=== PATIENT | male | born 1940 ===

== ENCOUNTER 2019-08-24 13:09 | Observation (INO) | payer MEDICARE, OTHER ==
[~2019-08-24] VITALS: Ht 180.3 cm; Wt 93.5 kg
[~2019-08-24 13:09] MED LIST: ASPI325T4 GT; CEPH500C PO; HYDR-3454 PO; LISI10TA2 PO; VRP80T PO
[2019-08-24] MEDS ORDERED: MUPIROCIN 2% OINT 22 GM (BACTROBAN) TUBE ONE (13:24)
[2019-08-24] MEDS ORDERED: COCAINE HCL 4% 2 ML SYR ONE (13:24)
[2019-08-24] MEDS ORDERED: PHENYLEPHRINE 0.5% NASAL SPR (NEO-SYNEPHRINE) REG ONE (13:24)
[2019-08-24] MEDS ORDERED: LIDOCAINE/EPI 1%-1:100,000 (XYLOCAINE) 20ML ONE (13:24)
[2019-08-24 13:32] LABS: BASOPHILS % (AUTO) 0 % (0-10); EOSINOPHILS # (AUTO) 0.3 10^3/uL (0.0-0.3); EOSINOPHILS % (AUTO) 4 % (0-10); HEMATOCRIT 47 % (40-54); HEMOGLOBIN 15.8 G/DL (13.3-17.7); LYMPHOCYTES # (AUTO) 1.4 X 10^3 (1.0-4.0); LYMPHOCYTES % (AUTO) 19 % (12-44); MEAN CORPUSCULAR HEMOGLOBIN 29 PG (25-34); MEAN CORPUSCULAR HGB CONC 33 G/DL (32-36); MEAN CORPUSCULAR VOLUME 85 FL (80-99); MEAN PLATELET VOLUME 11.2 FL (7.4-10.4); MONOCYTES # (AUTO) 0.8 X 10^3 (0.0-1.0); MONOCYTES % (AUTO) 11 % (0-12); NEUTROPHILS # (AUTO) 4.9 X 10^3 (1.8-7.8); NEUTROPHILS % (AUTO) 67 % (42-75); PLATELET COUNT 221 10^3/uL (130-400); RED CELL DISTRIBUTION WIDTH 15.5 % (10.0-14.5); WHITE BLOOD COUNT 7.3 10^3/uL (4.3-11.0)
--- NOTE | 2019-08-24 13:50 | Diagnostic Imaging Report ---
CHEST 1 VIEW, AP/PA ONLY Indication: Atrial fibrillation with rapid ventricular rate Comparison: None available. Findings: No focal airspace disease in the visualized lungs. Please note that the posterior lower lobes are poorly evaluated by portable radiography. No pleural effusion or pneumothorax. Normal cardiomediastinal silhouette. Impression: 1. No acute cardiopulmonary process by portable radiography. Dictated by: Dictated on workstation # [id number]
[2019-08-24 14:20] LABS: PROTHROMBIN TIME PATIENT 13.5 SEC (12.2-14.7)
[2019-08-24 14:27] LABS: ALANINE AMINOTRANSFERASE 17 U/L (0-55); ALBUMIN 3.8 GM/DL (3.2-4.5); ALKALINE PHOSPHATASE 64 U/L (40-136); BILIRUBIN,TOTAL 0.5 MG/DL (0.1-1.0); BUN/CREATININE RATIO 31; CALCIUM 9.1 MG/DL (8.5-10.1); CARBON DIOXIDE 22 MMOL/L (21-32); CHLORIDE 108 MMOL/L (98-107); CREATININE SERUM 0.78 MG/DL (0.60-1.30); GFR ESTIMATED > 60; GLUCOSE 103 MG/DL (70-105); MAGNESIUM 1.9 MG/DL (1.6-2.4); POTASSIUM 4.6 MMOL/L (3.6-5.0); SODIUM 138 MMOL/L (135-145); TOTAL PROTEIN 7.4 GM/DL (6.4-8.2)
--- NOTE | 2019-08-24 14:36 | ED General ---
General Chief Complaint: Nasal Problems Stated Complaint: NOSE BLEED;A-FIB W RVR Nursing Triage Note: Pt to room #2 via [facility] ems (ER-ER transfer [facility]) with c/o nose bleed et new onset afib. [facility] staff accessed 18g iv to R wrist. Upon arrival pt reports nose bleed began @ approx 0700 ont this day. Packing to R nare noted to be saturated with dark, red blood. Pt currently denies CP, SOA, pain or discomfort. Pt reports minimal amount of posterior nasal drainage. A&OX4. @ side. Nursing Sepsis Screen: No Definite Risk Source of Information: Patient, EMS, Other ([facility] ER notes and report) Exam Limitations: No Limitations History of Present Illness Date Seen by Provider: Aug 24, 2019 Time Seen by Provider: 13:10 Initial Comments This 79-year-old gentleman presents to the emergency room as a transfer from [facility] in [place] where he was having a nosebleed refractory to treatment. He has had multiple nosebleeds in the past treated surgically by Dr. Pappas. He received packing by the ER provider in [place] today but sneezed and blood through his packing. Packing was replaced. The ER provider discussed the case with Dr. Pappas who requested transfer to [place] for ENT evaluation. The ER provider noted a brief run of atrial fibrillation or atrial tachycardia with a heart rate near 150. This was short-lived and did not require treatment. EMS notes a few brief runs of tachycardia as well. Patient has no known history of tachycardic arrhythmias. Patient has not taken his medications this morning including verapamil and lisinopril. He was significantly hypertensive in [place] but this has improved. Systolic blood pressures 155 on arrival. EMS reports no problems with a nosebleed in route. Patient takes aspirin but is not anticoagulated. He reports no history of cardiac problems. Patient is a fairly heavy smoker. Primary care provider is Dr. Maurice Espinal in [place]. Patient describes chest pains in the past with brisk movements but denies any chest pains today. Allergies and Home Medications Allergies Coded Allergies: No Known Drug Allergies (Unverified , 04/04/14) Home Medications Cephalexin Monohydrate 500 Mg Capsule, 1 EACH PO TID Prescribed by: PATRICE BLAKE on 04/04/14 1316 Hydrocodone Bit/Acetaminophen 1 Each Tablet, 1-2 TAB PO Q4H PRN for PAIN Prescribed by: PATRICE BLAKE on 04/04/14 1316 Lisinopril 10 Mg Tablet, 20 MG PO DAILY, (Reported) Verapamil Hcl 80 Mg Tab, 1 EACH PO DAILY, (Reported) Patient Home Medication List Home Medication List Reviewed: Yes Review of Systems Review of Systems Constitutional: no symptoms reported EENTM: see HPI Respiratory: no symptoms reported Cardiovascular: see HPI Gastrointestinal: no symptoms reported Genitourinary: no symptoms reported Musculoskeletal: no symptoms reported Skin: no symptoms reported Psychiatric/Neurological: No Symptoms Reported Hematologic/Lymphatic: No Symptoms Reported Immunological/Allergic: no symptoms reported Past Flswfwf-Hmiydt-Cuukdi Hx Past Med/Social Hx: Reviewed and Corrections made Patient Social History Alcohol Use: Denies Use Recreational Drug Use: No Smoking Status: Current Everyday Smoker Type Used: Cigarettes 2nd Hand Smoke Exposure: Yes Recent Foreign Travel: No Contact w/Someone Who Travel: No Recent Infectious Disease Expo: No Past Medical History Surgeries: Yes (L shoulder, nasal cautery) Respiratory: No Cardiac: Yes (atrial tachycardia) Hypertension Neurological: No Gastrointestinal: No Musculoskeletal: No Endocrine: No Cancer: No Psychosocial: No Integumentary: No Blood Disorders: No Physical Exam Vital Signs Vital Signs - First Documented 08/24/19 13:10 Temp 37.2 Pulse 70 Resp 19 B/P (MAP) 155/85 (108) O2 Delivery Room Air Capillary Refill : Less Than 3 Seconds Height, Weight, BMI Height: 5'10" Weight: 210lbs. oz. 95.514838by; 28.00 BMI Method:Stated General Appearance: No Apparent Distress, WD/WN HEENT: PERRL/EOMI, Other (nasal packing in the right nostril with dry blood. 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 Norm as Tested Skin: Normal Color, Warm/Dry Progress/Results/Core Measures Suspected Sepsis Recent Fever Within 48 Hours: No Infection Criteria Present: None New/Unexplained Altered Menta: No Sepsis Screen: No Definite Risk SIRS Temperature: Pulse: 70 Respiratory Rate: 19 Laboratory Tests 08/24/19 13:20: White Blood Count 7.3 Blood Pressure 155 /85 Mean: 108 Laboratory Tests 08/24/19 13:20: Platelet Count 221 08/24/19 14:00: Creatinine 0.78, INR Comment 1.0, Total Bilirubin 0.5 Results/Orders Lab Results Laboratory Tests Test 08/24/19 13:20 08/24/19 14:00 Range/Units White Blood Count 7.3 4.3-11.0 10^3/uL Red Blood Count 5.55 4.35-5.85 10^6/uL Hemoglobin 15.8 13.3-17.7 G/DL Hematocrit 47 40-54 % Mean Corpuscular Volume 85 80-99 FL Mean Corpuscular Hemoglobin 29 25-34 PG Mean Corpuscular Hemoglobin Concent 33 32-36 G/DL Red Cell Distribution Width 15.5 H 10.0-14.5 % Platelet Count 221 130-400 10^3/uL Mean Platelet Volume 11.2 H 7.4-10.4 FL Neutrophils (%) (Auto) 67 42-75 % Lymphocytes (%) (Auto) 19 12-44 % Monocytes (%) (Auto) 11 0-12 % Eosinophils (%) (Auto) 4 0-10 % Basophils (%) (Auto) 0 0-10 % Neutrophils # (Auto) 4.9 1.8-7.8 X 10^3 Lymphocytes # (Auto) 1.4 1.0-4.0 X 10^3 Monocytes # (Auto) 0.8 0.0-1.0 X 10^3 Eosinophils # (Auto) 0.3 0.0-0.3 10^3/uL Basophils # (Auto) 0.0 0.0-0.1 10^3/uL Prothrombin Time 13.5 12.2-14.7 SEC INR Comment 1.0 0.8-1.4 Activated Partial Thromboplast Time 37 H 24-35 SEC Sodium Level 138 135-145 MMOL/L Potassium Level 4.6 3.6-5.0 MMOL/L Chloride Level 108 H 98-107 MMOL/L Carbon Dioxide Level 22 21-32 MMOL/L Anion Gap 8 5-14 MMOL/L Blood Urea Nitrogen 24 H 7-18 MG/DL Creatinine 0.78 0.60-1.30 MG/DL Estimat Glomerular Filtration Rate > 60 BUN/Creatinine Ratio 31 Glucose Level 103 70-105 MG/DL Calcium Level 9.1 8.5-10.1 MG/DL Corrected Calcium 9.3 8.5-10.1 MG/DL Magnesium Level 1.9 1.6-2.4 MG/DL Total Bilirubin 0.5 0.1-1.0 MG/DL Aspartate Amino Transf (AST/SGOT) 16 5-34 U/L Alanine Aminotransferase (ALT/SGPT) 17 0-55 U/L Alkaline Phosphatase 64 40-136 U/L Myoglobin 59.9 10.0-92.0 NG/ML Troponin I < 0.028 <0.028 NG/ML Total Protein 7.4 6.4-8.2 GM/DL Albumin 3.8 3.2-4.5 GM/DL TSH Bath Testing 0.43 0.35-4.94 UIU/ML My Orders Orders - ABI GUERRA MD Cbc With Automated Diff (08/24/19:) Magnesium (08/24/19 13:24) Chest 1 View, Ap/Pa Only (08/24/19 13:24) Ekg Tracing (08/24/19:24) Comprehensive Metabolic Panel (08/24/19:24) Myoglobin Serum (08/24/19:24) Protime With Inr (08/24/19:24) Partial Thromboplastin Time (08/24/19 13:24) O2 (08/24/19:24) Monitor-Rhythm Ecg Trace Only (08/24/19:24) Lipid Panel (08/25/19 06:00) Ed Iv/Invasive Line Start (08/24/19 13:24) Troponin I (08/24/19 13:24) Thyroid Analyzer (08/24/19:24) Cocaine 4% Topical Solution (Cocaine 4% (08/24/19:24) Phenylephrine 0.5% Nasal Almond (Prasanna-Syne (08/24/19 13:24) Mupirocin Ointment (Bactroban Ointment (08/24/19 13:24) Lidocaine/Epi 1% 1:100,000 (Xylocaine /E (08/24/19 13:24) Echo W Doppler/Color Flow (08/24/19 14:54) Vital Signs/I&O 08/24/19 13:10 Temp 37.2 Pulse 70 Resp 19 B/P (MAP) 155/85 (108) O2 Delivery Room Air Capillary Refill : Less Than 3 Seconds Blood Pressure Mean: 108 Progress Note : Time: 15:01 Progress Note I discussed the case with Dr. Pappas who intends to take the patient to surgery this afternoon for cauterization. He requested that the patient be admitted to the hospitalist service because of the atrial tachycardia and hypertension. Dr. Pinon accepted the admission. Dr. Rubio was consulted and came to the emergency room to evaluate the patient. He reviewed the EKG from [place] and determined it is likely atrial tachycardia, not atrial fibrillation. Patient likely does not need anticoagulation. However, there were some ST changes that warrants further investigation. He requested a stat echocardiogram prior to surgery. He also recommended a beta acosta and preop before surgery. An update was provided to Dr. Pappas at 15:05 and he intends to discuss further with Dr. Rubio before surgery. ECG Initial ECG Impression Date: Aug 24, 2019 Initial ECG Impression Time: 13:18 Initial ECG Rate: 68 Initial ECG Rhythm: Normal Sinus Initial ECG Impression: Normal Comment Sinus rhythm with no ST elevation or depression. Right axis deviation by automated read. PAC noted. Diagnostic Imaging Diagonstic Imaging: Xray Plain Films/CT/US/NM/MRI: chest Comments NAME: PAULO TORO [facility] REC#: [id number] PT STATUS: REG ER : 1940 PHYSICIAN: ABI GUERRA MD ADMIT DATE: 08/24/19/ER Signed Date of Exam:08/24/19 CHEST 1 VIEW, AP/PA ONLY Indication: Atrial fibrillation with rapid ventricular rate Comparison: None available. Findings: No focal airspace disease in the visualized lungs. Please note that the posterior lower lobes are poorly evaluated by portable radiography. No pleural effusion or pneumothorax. Normal cardiomediastinal silhouette. Impression: 1. No acute cardiopulmonary process by portable radiography. Dictated by: Dictated on workstation # [id number] Dict: 08/24/19 1348 Trans: 08/24/19 1348 [facility] [id number] Interpreted by: ELEAZAR ENGLAND MD Electronically signed by: ELEAZAR ENGLAND MD 08/24/19 1348 Departure Communication (Admissions) Time/Spoke to Admitting Phy: 13:55 Dr. Zi Pappas at 13:45 Dr. Rubio at 14:28 Impression Primary Impression: Epistaxis Additional Impressions: Accelerated hypertension Atrial tachycardia Disposition: ADMITTED INPATIENT Condition: Improved Admissions Decision to Admit Reason: Admit from ER (General) Decision to Admit/Date: Aug 24, 2019 Time/Decision to Admit Time: 13:10 Departure-Patient Inst. Referrals: GEREMIAS ESPINAL DO (PCP) Primary Care Physician ABI GUERRA MD Aug 24, 2019 14:36
[2019-08-24 14:47] LABS: TSH (THYROID ANALYZER) 0.43 UIU/ML (0.35-4.94)
--- NOTE | 2019-08-24 15:00 | NUR ---
Viraj ([employer] at [facility] obtaining echocardiogram.
--- NOTE | 2019-08-24 15:15 | NUR ---
Nancy, SHOE PACKER student in room visiting with pt et regarding H&P.
--- NOTE | 2019-08-24 15:21 | History & Physical-Hospitalist ---
MALIHA BELTRANAH,MED STUDENT 08/24/19 1521: History of Present Illness HPI/Chief Complaint Patient is a 79 y/o male with history of hypertension who presented to the [place] ED with right sided epistaxis. While in the ED, he was found to have what they thought to be new onset atrial fibrillation with RVR which later converted back to sinus rhythm. He was sent to the [place] ED for further evaluation prior to undergoing surgery with ENT for the nosebleed. Patient denied any associated chest pain, shortness of breath, or palpitations. He also denied any recent life stressors. He has no history of [place], stroke, or VTE. He states that he believes he has COPD due to his 50 pack year smoking history, but he has never been formally tested. He did state that he has noticed intermittent palpitations, usually brought on with exertion. He remained in sinus rhythm while in the [place] ED. Date Seen 08/24/19 Attending Physician Jaxon Pinon MD PCP Efrain Espinal DO Referring Physician Date of Admission Aug 24, 2019 at 14:32 Home Medications & Allergies Home Medications Reviewed patient Home Medication Reconciliation performed by pharmacy medication reconciliations armorer technician and/or nursing. Patients Allergies have been reviewed. Allergies Allergies Coded Allergies No Known Drug Allergies (Unverified04/04/14) Past Yaddesb-Tpanep-Xekblx Hx Past Med/Social Hx: Reviewed Nursing Past Med/Soc Hx Patient Social History Marrital Status: Alcohol Use: Denies Use Recreational Drug Use: No Smoking Status: Current Everyday Smoker (50 pack year history) Cigaretts per day: 20 Type Used: Cigarettes 2nd Hand Smoke Exposure: Yes Recent Foreign Travel: No Contact w/other who traveled: No Recent Infectious Disease Expo: No Past Medical History Surgeries: Orthopedic (right rotator cuff) Cardiac: Hypertension History of Blood Disorders: No Family History No Pertinent Family Hx Review of Systems Constitutional: No chills, No fever EENTM: epistaxis; No nose pain Respiratory: No cough; short of breath Cardiovascular: No chest pain; palpitations Gastrointestinal: No abdominal pain, No diarrhea Genitourinary: No dysuria, No frequency Musculoskeletal: No joint pain, No joint swelling Skin: No lesions, No rash Psychiatric/Neurological: Denies Headache, Denies Paresthesia Physical Exam Physical Exam Vital Signs Vital Signs - First Documented 08/24/19 13:10 Temp 37.2 Pulse 70 Resp 19 B/P (MAP) 155/85 (108) O2 Delivery Room Air Capillary Refill : Less Than 3 Seconds Height, Weight, BMI Height: 5'10" Weight: 210lbs. oz. 95.028171gu; 28.00 BMI Method:Stated General Appearance: No Apparent Distress, WD/WN HEENT: Moist Mucous Membranes, Other (gauze roll in right nare, no active bleeding noted) Neck: Non Tender, Supple Respiratory: Chest Non Tender, Lungs Clear, Normal Breath Sounds, No Accessory Muscle Use, No Respiratory Distress Cardiovascular: Regular Rate, Rhythm, No Murmur Gastrointestinal: Non Tender, Soft Extremity: Non Tender, No Pedal Edema Neurologic/Psychiatric: Alert, Normal Mood/Affect Skin: Normal Color, Warm/Dry Results Results/Procedures Labs Laboratory Tests 08/24/19 13:20 08/24/19 14:00 Patient resulted labs reviewed. Assessment/Plan Admission Diagnosis atrial tachycardia, unsure if atrial fibrillation Admission Status: Observation Assessment and Plan Atrial tachycardia, unsure if atrial fibrillation - Cardiology reviewed ECG from [place] and did not agree that it showed atrial fibrillation, possibly just supraventricular tachycardia - Echo done in ED - 24 hour cardiac monitoring - He is already on verapamil - Add beta acosta Epistaxis of right nare - Dr. Pappas will take to OR today - Hold aspirin JAXON PINON MD 08/24/19 1840: History of Present Illness Time Seen by a Provider: 15:30 Assessment/Plan Assessment and Plan Pt was transferred here due to epistaxis and new onset atrial fibrillation per [place] ER. I personally reviewed EKG with Dr Olmstead and Dr Rubio from both here and at [place] and it does not appear to be atrial fibrillation. Regardless his rate is well controlled in the 60s at the time of my exam and he is in sinus rhythm. Anticoagulation is also contraindicated at this time due to his epistaxis. Plan is [facility] under the care of Dr Pappas. Dr Rubio is consulted as well. Echo ordered. He will be on telemetry post op. BP was elevated as well but is now improved. As he is NPO will just trend and resume home meds when able. Diagnosis/Problems Diagnosis/Problems (1) Atrial tachycardia Status: Acute (2) Accelerated hypertension Status: Acute (3) Epistaxis Status: Acute Supervisory-Addendum Brief Verification & Attestation Participated in pt care: history, MDM, physical Personally performed: exam, history, MDM, supervision of care Care discussed with: Medical Student Procedures: n/a Results interpretation: Verified all documentation Verification and Attestation of Medical Student E/M Service A medical student performed and documented this service in my presence. I reviewed and verified all information documented by the medical student and made modifications to such information, when appropriate. I personally performed the physical exam and medical decision making. Jaxon Pinon, Aug 27, 2019,20:01 GENARO BELTRAN,MED STUDENT Aug 24, 2019 15:21 JAXON PINON MD Aug 24, 2019 18:40
[2019-08-24] MEDS ORDERED: RT-ALBUTEROL/IPRATROPIUM 3 ML (DUONEB) VIAL INH ONE (15:45)
[2019-08-24 16:05] VITALS: BP 184/77
--- NOTE | 2019-08-24 16:05 | NUR ---
PAULO TORO admitted to room 405-1, with an admitting diagnosis of EPISTAXIS, on 08/24/19 from ED via WHEELCHAIR, accompanied by ED STAFF AND .PAULO TORO introduced to surroundings, call light, bed controls, phone, TV, temperature control, lights, meal times, smoking policy, visitor policy, side rail policy, bathrooms and showers. Patient Rights given to patient in the handbook. PAULO TORO verbalizes understanding that [facility] is not responsible for the loss or damage to any personal effects or valuables that are kept in the patients posession during their hospitalization. PAULO TORO verbalizes understanding of Interdisciplinary Patient Education. Patient and/or family were informed about the Rapid Response Team and its purpose.
[2019-08-24 16:45] VITALS: BP 184/77
--- NOTE | 2019-08-24 16:50 | Consultation-Cardiology ---
HPI-Cardiology Cardiology Consultation Date of Consultation 08/24/19 Date of Admission Time Seen by Provider: 16:00 Indication: supraventricular tachycardia HPI 79-year-old gentleman with history of recurrent nosebleed, had cauterized a Xun done, he was seen in [facility] emergency room for nosebleed, arrangement were made for transfer to [place], prior to transfer he had a transient episode of supraventricular tachycardia converted back to sinus rhythm spontaneously. He admitted having occasional episodes of chest pain with exertion described it as tightness in the retrosternal area, last episode occurred about a month ago, infrequent episodes, some dyspnea on exertion. Denied any palpitation, no syncope or near syncopal episode. On arrival to the hospital his EKG showed nonspecific T wave abnormality in the inferior leads. Home Medications & Allergies Allergies: Coded Allergies: No Known Drug Allergies (Unverified , 04/04/14) Home Medication List Reviewed: Yes EEP-Yoyblc-Sjdsyr Hx Patient Social History Marital Status: Alcohol Use: Denies Use Recreational Drug Use: No Smoking Status: Current Everyday Smoker (50 pack year history) Cigaretts per day: 20 Type Used: Cigarettes 2nd Hand Smoke Exposure: Yes Recent Foreign Travel: No Recent Infectious Disease Expo: No Past Medical History Discussed below Family Medical History Significant Family History: No Pertinent Family Hx Family Medical Hx Noncontributory to his current condition Review of Systems-General Review of Systems Constitutional: No no symptoms reported; see HPI; No chills, No diaphoresis, No dizziness, No fever, No malaise, No weakness, No weight gain, No weight loss, No other EENTM: see HPI, epistaxis; No nose pain Respiratory: see HPI; No cough; dyspnea on exertion; No hemoptysis, No orthopnea, No phlegm; short of breath; No stridor, No wheezing, No other Cardiovascular: see HPI, chest pain; No edema, No Hx of Intervention, No syncope, No vascular heart diseas, No other Gastrointestinal: no symptoms reported, see HPI; No abdominal pain, No diarrhea Genitourinary: no symptoms reported, see HPI; No dysuria, No frequency Musculoskeletal: no symptoms reported, see HPI; No joint pain, No joint swelling Skin: no symptoms reported, see HPI; No lesions, No rash Psychiatric/Neurological: No Symptoms Reported, See HPI; Denies Headache, Denies Paresthesia Reviewed Test Results Reviewed Test Results Lab Laboratory Tests Test 08/24/19 13:20 08/24/19 14:00 Range/Units White Blood Count 7.3 4.3-11.0 10^3/uL Red Blood Count 5.55 4.35-5.85 10^6/uL Hemoglobin 15.8 13.3-17.7 G/DL Hematocrit 47 40-54 % Mean Corpuscular Volume 85 80-99 FL Mean Corpuscular Hemoglobin 29 25-34 PG Mean Corpuscular Hemoglobin Concent 33 32-36 G/DL Red Cell Distribution Width 15.5 H 10.0-14.5 % Platelet Count 221 130-400 10^3/uL Mean Platelet Volume 11.2 H 7.4-10.4 FL Neutrophils (%) (Auto) 67 42-75 % Lymphocytes (%) (Auto) 19 12-44 % Monocytes (%) (Auto) 11 0-12 % Eosinophils (%) (Auto) 4 0-10 % Basophils (%) (Auto) 0 0-10 % Neutrophils # (Auto) 4.9 1.8-7.8 X 10^3 Lymphocytes # (Auto) 1.4 1.0-4.0 X 10^3 Monocytes # (Auto) 0.8 0.0-1.0 X 10^3 Eosinophils # (Auto) 0.3 0.0-0.3 10^3/uL Basophils # (Auto) 0.0 0.0-0.1 10^3/uL Prothrombin Time 13.5 12.2-14.7 SEC INR Comment 1.0 0.8-1.4 Activated Partial Thromboplast Time 37 H 24-35 SEC Sodium Level 138 135-145 MMOL/L Potassium Level 4.6 3.6-5.0 MMOL/L Chloride Level 108 H 98-107 MMOL/L Carbon Dioxide Level 22 21-32 MMOL/L Anion Gap 8 5-14 MMOL/L Blood Urea Nitrogen 24 H 7-18 MG/DL Creatinine 0.78 0.60-1.30 MG/DL Estimat Glomerular Filtration Rate > 60 BUN/Creatinine Ratio 31 Glucose Level 103 70-105 MG/DL Calcium Level 9.1 8.5-10.1 MG/DL Corrected Calcium 9.3 8.5-10.1 MG/DL Magnesium Level 1.9 1.6-2.4 MG/DL Total Bilirubin 0.5 0.1-1.0 MG/DL Aspartate Amino Transf (AST/SGOT) 16 5-34 U/L Alanine Aminotransferase (ALT/SGPT) 17 0-55 U/L Alkaline Phosphatase 64 40-136 U/L Myoglobin 59.9 10.0-92.0 NG/ML Troponin I < 0.028 <0.028 NG/ML Total Protein 7.4 6.4-8.2 GM/DL Albumin 3.8 3.2-4.5 GM/DL TSH Irion Testing 0.43 0.35-4.94 UIU/ML Physical Exam Physical Exam Vital Signs Vital Signs - First Documented 08/24/19 08/24/19 13:10 15:57 Temp 37.2 Pulse 70 Resp 19 B/P (MAP) 155/85 (108) Pulse Ox 94 O2 Delivery Room Air Capillary Refill : Less Than 3 Seconds Height, Weight, BMI Height: 5'10" Weight: 210lbs. oz. 95.612975ci; 28.00 BMI Method:Stated General Appearance: No Apparent Distress, WD/WN HEENT: Moist Mucous Membranes, Other (gauze roll in right nare, no active bleeding noted) Neck: Non Tender, Supple Respiratory: Chest Non Tender, Lungs Clear, Normal Breath Sounds, No Accessory Muscle Use, No Respiratory Distress Cardiovascular: Regular Rate, Rhythm, No Edema, Systolic Murmur Gastrointestinal: Non Tender, Soft Extremity: Non Tender, Pedal Edema (trace edema) Neurologic/Psychiatric: Alert, Normal Mood/Affect Skin: Normal Color, Warm/Dry A/P-Cardiology Admission Diagnosis Paroxysmal atrial tachycardia Aortic valve stenosis Chest pain Abnormal EKG Assessment/Plan Paroxysmal atrial tachycardia, self-limiting, asymptomatic. Continue to monitor next Abnormal EKG, history of occasional episode of chest pain, nonspecific etiology, echocardiogram showed mild left ventricular hypertrophy with normal systolic function, mild to moderate aortic valve stenosis. We'll start low-dose beta blockers and evaluate tolerance and response. Recurrent nosebleed, for possible surgery tomorrow. Hypertension, monitor blood pressure Questionable hyperlipidemia, evaluate lipid profile Preoperative cardiac evaluation, patient is considered at intermediate risk for perioperative cardiac vascular complications, decision regarding the surgery, risks versus benefit is deferred to the surgeon Clinical Quality Measures DVT/VTE Risk/Contraindication: Risk Factor Score Per Nursin RFS Level Per Nursing on Admit: 3=High TOSHIA ZAPATA MD Aug 24, 2019 16:50
[2019-08-24] MEDS ORDERED: RT-ALBUTEROL SULF 2.5 MG/3 ML PRE-MIX VIAL INH PRN (17:00)
[2019-08-24] MEDS: NITROGLYCERIN 2% OINT 1 GM UNIT DOSE PACKET TOP PRN (17:23)
[2019-08-24] MEDS: NS IV 1000 ML 1,000 ML IV SCH (17:24)
--- NOTE | 2019-08-24 17:45 | Progress Note ---
Standard Progress Note Progress Notes/Assess & Plan Date Seen by a Provider: Aug 24, 2019 Time Seen by a Provider: 17:30 Progress/Assessment & Plan ENT-Mian- patient seen evaluated right post epistaxis heart being worked up npo p mn can eat up until midnight consent for endoscopic repair of right post epistaxis looks like surgery will be around mid morning on wednesday unless has uncontrolled bleeding otherwise tonight full note dictated MATTHIAS CABALLERO MD Aug 24, 2019 17:45
[2019-08-24] MEDS ORDERED: OXYMETAZOLINE (AFRIN) 0.05% NA 30 ML BTL PRN (18:00)
[2019-08-24] MEDS: RT-ALBUTEROL SULF 2.5 MG/3 ML PRE-MIX VIAL INH SCH (18:04)
[2019-08-24] MEDS ORDERED: ACETAMINOPHEN 325 MG TABLET PO PRN (18:45)
[2019-08-24] MEDS ORDERED: ANTACID SUSP 30 ML UDC (MYLANTA) PO PRN (18:45)
[2019-08-24] MEDS ORDERED: MILK OF MAGNESIA 400 MG/5 ML 30 ML UDC PO PRN (18:45)
[2019-08-24] MEDS ORDERED: ONDANSETRON 4 MG/2 ML (SDV) Z0FRAN IV PRN (18:45)
--- NOTE | 2019-08-24 18:59 | HISTORY AND PHYSICAL ---
DATE OF SERVICE: ENT CONSULT ROOM: 405. REFERRING PHYSICIAN: Dr. Flores. REASON FOR CONSULTATION: Right posterior epistaxis. HISTORY OF PRESENT ILLNESS: The patient was admitted to the hospital earlier this afternoon with the right posterior epistaxis. He was originally seen at [facility] where he was packed. He subsequently developed atrial tachycardia or possibly AFib. He had a rebleed and subsequently was transferred here for care. He has a history of two nosebleeds in the past, also which were cauterized, one in the operating room 6 years ago and one in the office approximately a year and a half ago. He has no other bleeding tendencies. The bleeding started yesterday and has persisted. He reports that bled more so from the front of the nose rather than posteriorly initially, but subsequently began to bleed posteriorly as well. PAST MEDICAL HISTORY: Dr. Rubio has seen and evaluated the patient. He is obtaining an echo to evaluate the heart as well as further troponins to rule out ischemia or other cardiac event. PHYSICAL EXAMINATION: A directed physical exam was done. NOSE: The right side of the nose was packed. There was some old blood present, but no new blood seen either anteriorly or posteriorly in the nasopharynx. Oral cavity was clear with no bleeding seen. NECK: Negative. IMPRESSION: Recurrent right posterior epistaxis. RECOMMENDATIONS: The patient will need evaluated in the operating room. He may eat until midnight, but then needed to be n.p.o. Surgery has been scheduled for Wednesday morning mid morning. Hopefully, by that time, the troponins will be back and we can proceed. If he has any acute bleeding in the night, he can use Afrin nasal spray 2 squirts in each or in the side of the nose that is bleeding. If it is uncontrolled bleeding, then we may be forced to do something tonight. I will follow up with him tomorrow morning. Consent for endoscopic repair of right posterior epistaxis will be obtained. His hemoglobin today was 15.8. Job ID: [id number] DocumentID: [id number] Dictated Date: 08/24/2019 18:15:13 Search Analyst Date: 08/24/2019 18:58:43 Dictated By: MATTHIAS CABALLERO MD
[2019-08-24 20:00] VITALS: BP 148/67
[2019-08-24] MEDS: DICYCLOMINE 10 MG (BENTYL) CAP PO SCH (21:37)
[2019-08-24] MEDS: MELATONIN 3 MG TABLET PO PRN (23:48)
[2019-08-25] VITALS (16 sets, daily range): BP systolic 95–184; BP diastolic 53–77
[2019-08-25] MEDS: NS IV 1000 ML 1,000 ML IV SCH (03:26)
[2019-08-25] MEDS: DICYCLOMINE 10 MG (BENTYL) CAP PO SCH ×4 (05:33→20:40)
--- NOTE | 2019-08-25 06:20 | NUR ---
DR. CABALLERO ON FLOOR, THIS RN DISCUSSED WITH HIM WETHER TO DO MRSA NASAL SWAB OR NOT. THIS RN WAS INFORMED THAT THIS WOULD BE PREFORMED IN THE OPERATING ROOM & FOR THIS RN TO NOT PREFORM THE SWAB.
[2019-08-25 06:36] LABS: HEMOGLOBIN 14.3 G/DL (13.3-17.7); MEAN PLATELET VOLUME 9.2 FL (7.4-10.4); RED CELL DISTRIBUTION WIDTH 14.9 % (10.0-14.5); WHITE BLOOD COUNT 7.6 10^3/uL (4.3-11.0)
--- NOTE | 2019-08-25 06:59 | Progress Note ---
Standard Progress Note Progress Notes/Assess & Plan Date Seen by a Provider: Aug 25, 2019 Time Seen by a Provider: 06:30 Progress/Assessment & Plan ENT-Pappas- patient seen evaluated right post epistaxis heart being worked up npo p mn can eat up until midnight consent for endoscopic repair of right post epistaxis looks like surgery will be around mid morning on wednesday unless has uncontrolled bleeding otherwise tonight full note dictated ENT-61 NPO for surgery mid morning awaiting morning troponins as long as heart is ok for surgery will proceed MATTHIAS PAPPAS MD Aug 25, 2019 06:59
[2019-08-25 07:02] LABS: ALANINE AMINOTRANSFERASE 13 U/L (0-55); ALBUMIN 3.4 GM/DL (3.2-4.5); ALKALINE PHOSPHATASE 53 U/L (40-136); BILIRUBIN,TOTAL 0.4 MG/DL (0.1-1.0); BUN/CREATININE RATIO 24; CALCIUM 8.6 MG/DL (8.5-10.1); CARBON DIOXIDE 22 MMOL/L (21-32); CHLORIDE 110 MMOL/L (98-107); CHOLESTEROL 117 MG/DL (< 200); CREATININE SERUM 0.87 MG/DL (0.60-1.30); GFR ESTIMATED > 60; GLUCOSE 94 MG/DL (70-105); HDL CHOLESTEROL 33 MG/DL (40-60); POTASSIUM 4.1 MMOL/L (3.6-5.0); SODIUM 140 MMOL/L (135-145); TOTAL PROTEIN 6.3 GM/DL (6.4-8.2); TRIGLYCERIDES 92 MG/DL (<150); VLDL CHOLESTEROL 18 MG/DL (5-40)
[2019-08-25] MEDS ORDERED: COCAINE HCL 4% 2 ML SYR ONE (08:08)
[2019-08-25] MEDS ORDERED: MUPIROCIN 2% OINT 22 GM (BACTROBAN) TUBE ONE (08:09)
[2019-08-25] MEDS ORDERED: PHENYLEPHRINE 0.5% NASAL SPR (NEO-SYNEPHRINE) REG ONE (08:09)
[2019-08-25] MEDS ORDERED: LIDOCAINE/EPI 1%-1:100,000 (XYLOCAINE) 20ML ONE (08:09)
[2019-08-25] MEDS ORDERED: fentaNYL INJECTION 100 MCG/2 ML AMP ONE (08:56)
[2019-08-25] MEDS ORDERED: ROCURONIUM 10 MG/ML 5 ML SYRINGE IV ONE (08:56)
[2019-08-25] MEDS ORDERED: LIDOCAINE PF 2% 5 ML (XYLOCAINE) VIAL ONE (08:56)
[2019-08-25] MEDS ORDERED: SEVOFLURANE (ULTANE) 15 ML INHAL SOLN ONE ×3 (08:56→09:01)
[2019-08-25] MEDS ORDERED: DEXAMETHASONE 10 MG/ML (DECADRON) 1 ML VIAL ONE (08:56)
[2019-08-25] MEDS ORDERED: proPOfol 200 MG/20 ML (DIPRIVAN) VIAL IV ONE (08:56)
[2019-08-25] MEDS ORDERED: ONDANSETRON 4 MG/2 ML (SDV) Z0FRAN ONE (08:56)
[2019-08-25] MEDS ORDERED: LACTATED RINGERS 1,000 ML IV PRN (08:58)
--- NOTE | 2019-08-25 09:19 | Progress Note-Pre Operative ---
Pre-Operative Progress Note H&P Reviewed The H&P was reviewed, patient examined and no changes noted. Date Seen by Provider: Aug 25, 2019 Time Seen by Provider: 09:10 Date H&P Reviewed: Aug 25, 2019 Time H&P Reviewed: 09:10 Pre-Operative Diagnosis: Right Posterior Epistaxis MATTHIAS CABALLERO MD Aug 25, 2019 09:18
[2019-08-25] MEDS: ceFAZolin INJECTION 1,000 MG in WATER (STERILE) FOR INJECTION 10 ML IV SCH ×2 (09:20→20:38)
[2019-08-25] MEDS ORDERED: SUCCINYLCHOLINE INJ 100 MG/5 ML SYR ONE (09:34)
[2019-08-25] MEDS ORDERED: ceFAZolin INJECTION 1,000 MG VIAL IV ONE (10:00)
--- NOTE | 2019-08-25 10:01 | Progress Note-Post Operative ---
Post-Operative Progess Note Surgeon (s)/Track Walker (s) Surgeon MATTHIAS CABALLERO MD Track Walker n/a Pre-Operative Diagnosis Right Posterior Epistaxis Post-Operative Diagnosis same Post-Op Procedure Note Date of Procedure: Aug 25, 2019 Name of Procedure Performed: Endoscopic REpair of Right PosteriorEpistaxis Description & Findings Description and Findings: n/a Anesthesia Type get Estimated Blood Loss minimal Packing none. Specimen(s) collected/removed none MATTHIAS CABALLERO MD Aug 25, 2019 10:01
--- NOTE | 2019-08-25 10:06 | Progress Note ---
Standard Progress Note Progress Notes/Assess & Plan Date Seen by a Provider: Aug 25, 2019 Time Seen by a Provider: 10:00 Progress/Assessment & Plan ENT-Mian- patient seen evaluated right post epistaxis heart being worked up npo p mn can eat up until midnight consent for endoscopic repair of right post epistaxis looks like surgery will be around mid morning on wednesday unless has uncontrolled bleeding otherwise tonight full note dictated ENT-61 NPO for surgery mid morning awaiting morning troponins as long as heart is ok for surgery will proceed [id number] patietn had surgery with cautery of right epistaxis would rec staying today and then home on sat am if ding well will go home with antibiotics and pain medication rtc-2 weeks epistaxis discharge instructions MATTHIAS CABALLERO MD Aug 25, 2019 10:06
[2019-08-25] MEDS ORDERED: HYDROcodone/APAP 5 MG/325 MG (LORTAB) TAB PO PRN (10:15)
[2019-08-25] MEDS ORDERED: ACETAMINOPHEN 500 MG TAB (TYLENOL) PO PRN (10:15)
[2019-08-25] MEDS ORDERED: PHENYLEPHRINE 0.5% NASAL SPR (NEO-SYNEPHRINE) REG PRN (10:15)
--- NOTE | 2019-08-25 10:37 | Anesthesia-General Post-Op ---
General Patient Condition Mental Status/LOC: Same as Preop Cardiovascular: Satisfactory Nausea/Vomiting: Absent Respiratory: Satisfactory Pain: Controlled Complications: Absent Post Op Complications Complications None Follow Up Care/Instructions Patient Instructions None needed. Anesthesia/Patient Condition Patient Condition Patient is doing well, no complaints, stable vital signs, no apparent adverse anesthesia problems. No complications reported per nursing. BORIS MADDEN CRNA Aug 25, 2019 10:37
[2019-08-25] MEDS: RT-ALBUTEROL SULF 2.5 MG/3 ML PRE-MIX VIAL INH SCH ×3 (11:06→18:05)
[2019-08-25] MEDS: D5 1/2 NS W/KCL 20 MEQ/L 1,000 ML IV SCH ×2 (12:02→20:41)
[2019-08-25] MEDS ORDERED: ASPI325T32 PO (12:25)
[2019-08-25] MEDS ORDERED: DICY20TA10 PO (12:25)
[2019-08-25] MEDS ORDERED: VERA80TA2 PO (12:25)
[2019-08-25] MEDS ORDERED: LISI-552 PO (12:25)
[2019-08-25] MEDS ORDERED: ALBU2.5V4 NEB (12:26)
--- NOTE | 2019-08-25 12:28 | NUR ---
SPOKE WITH THE PATIENT AND FAMILY ABOUT MEDICATIONS. WE WENT OVER THE EXT MED HX AND HE VERIFIED HOW HE TAKES THEM. HIS LISINOPRIL WAS FILLED 20MG #180 FOR 90 DAYS 07-20-19 HE STATES HE ONLY TAKES 1 TAB ONCE DAILY IN THE MORNING. HE TAKES ASPIRIN 325MG DAILY OTC. HE ALSO STATES HE HAS ALBUTEROL NEBULIZER SOLUTION HE USES NEEDED.
[2019-08-25] MEDS: NITROGLYCERIN 2% OINT 1 GM UNIT DOSE PACKET TOP PRN (12:49)
--- NOTE | 2019-08-25 13:26 | Progress Note - Hospitalist ---
GENARO BELTRAN,MED STUDENT 08/25/19 1326: Subjective HPI/CC On Admission Date Seen by Provider: Aug 25, 2019 Time Seen by Provider: 12:45 Patient is a 79 y/o male with history of hypertension who presented to the [place] ED with right sided epistaxis. While in the ED, he was found to have what they thought to be new onset atrial fibrillation with RVR which later converted back to sinus rhythm. He was sent to the [place] ED for further evaluation prior to undergoing surgery with ENT for the nosebleed. Patient denied any associated chest pain, shortness of breath, or palpitations. He also denied any recent life stressors. He has no history of SC, stroke, or VTE. He states that he believes he has COPD due to his 50 pack year smoking history, but he has never been formally tested. He did state that he has noticed intermittent palpitations, usually brought on with exertion. He remained in sinus rhythm while in the [place] ED. Subjective/Events-last exam Patient had surgery with Dr. Pappas this morning for posterior epistaxis. He is recovering well and denies having any pain. Denies chest pain, palpitations, or shortness of breath. No new complaints or concerns at this time. Objective Exam Vital Signs Vital Signs Date Time Temp Pulse Resp B/P (MAP) Pulse Ox O2 Delivery O2 Flow Rate FiO2 08/25/19 12:45 36.3 54 20 184/77 (112) 91 Room Air 08/25/19 11:30 6.00 40.00 Capillary Refill : Less Than 3 SecondsLess Than 3 Seconds General Appearance: No Apparent Distress, WD/WN HEENT: Moist Mucous Membranes, Other (gauze in place over bilateral nares) Neck: Non Tender, Supple Respiratory: Chest Non Tender, Lungs Clear, Normal Breath Sounds, No Accessory Muscle Use, No Respiratory Distress Cardiovascular: Regular Rate, Rhythm, No Murmur Gastrointestinal: Non Tender, Soft Extremity: No Calf Tenderness, No Pedal Edema Neurologic/Psychiatric: Alert, Normal Mood/Affect Skin: Normal Color, Warm/Dry Results/Procedures Lab Laboratory Tests 08/24/19 13:20 08/24/19 14:00 08/25/19 05:44 Patient resulted labs reviewed. Assessment/Plan Assessment and Plan Assess & Plan/Chief Complaint Paroxysmal atrial tachycardia - Cardiology reviewed ECG from [place] and did not agree that it showed atrial fibrillation - Echo done in ED showed mild LVH with normal systolic function; mild to moderate aortic valve stenosis - Troponin negative - Telemetry - Start Metoprolol 25 mg daily Posterior epistaxis of right nare - s/p endoscopic repair this morning - No further bleeding at this time - Dr. Pappas following HTN - Resume home meds Clinical Quality Measures DVT/VTE Risk/Contraindication: Risk Factor Score Per Nursin RFS Level Per Nursing on Admit: 3=High JAXON PINON MD 08/25/19 1523: Assessment/Plan Assessment and Plan Assess & Plan/Chief Complaint Pt repors feeling well. Would like to eat. Seen after OR and doing well. Will monitor overnight and pending cardiac status may be able to DC home tomorrow. Continue on telemetry. Diagnosis/Problems Diagnosis/Problems (1) Atrial tachycardia Status: Acute (2) Accelerated hypertension Status: Acute (3) Epistaxis Status: Acute (4) Paroxysmal atrial fibrillation with RVR Status: Acute (5) Left-sided epistaxis Status: Acute Supervisory-Addendum Brief Verification & Attestation Participated in pt care: history, MDM, physical Personally performed: exam, history, MDM, supervision of care Care discussed with: Medical Student Procedures: n/a Results interpretation: Verified all documentation Verification and Attestation of Medical Student E/M Service A medical student performed and documented this service in my presence. I reviewed and verified all information documented by the medical student and made modifications to such information, when appropriate. I personally performed the physical exam and medical decision making. Jaxon Pinon, Aug 25, 2019,15:23 GENARO BELTRAN,MED STUDENT Aug 25, 2019 13:26 JAXON PINON MD Aug 25, 2019 15:23
--- NOTE | 2019-08-25 16:24 | Cardiology Progress Note ---
Subjective Date Seen by Provider: Aug 25, 2019 Time Seen by Provider: 16:23 Subjective/Events-last exam Patient had surgery today, feeling better. No new complaint Review of Systems General: No Chills, No Night Sweats, No Fatigue, No Malaise, No Appetite, No Other HEENT: No Head Aches, No Visual Changes, No Eye Pain, No Ear Pain, No Dysphasia, No Sinus Congestion, No Post Nasal Drip, No Sore Throat, No Other Pulmonary: No Dyspnea, No Cough, No Pleuritic Chest Pain, No Other Cardiovascular: No: Chest Pain, Palpitations, Orthopnea, Paroxysmal Noc. Dyspnea, Edema, Lt Headedness, Other Objective-Cardiology Exam Last Set of Vital Signs Vital Signs 08/25/19 08/25/19 08/25/19 08/25/19 12:45 14:25 15:44 16:00 Temp 36.3 Pulse 60 Resp 20 B/P (MAP) 148/66 (93) Pulse Ox 92 O2 Delivery OxyMask O2 Flow Rate 4.00 FiO2 36 Capillary Refill : Less Than 3 SecondsLess Than 3 Seconds I&O Intake and Output 08/25/19 00:00 Intake Total 480 ml Output Total 475 ml Balance 5 ml Intake Oral 480 ml Output Urine Total 475 ml Daily Weight Change No No General: Alert, Oriented X3, Cooperative HEENT: Atraumatic, PERRLA Neck: Supple, No JVD, No Thyromegaly Lungs: Clear to Auscultation, Normal Air Movement Heart: Regular Rate, Normal S1, Normal S2, No Murmurs Abdomen: Normal Bowel Sounds, Soft, No Tenderness, No Hepatosplenomegaly, No Masses Extremities: No Clubbing, No Cyanosis, No Edema, Normal Pulses, No Tenderness/Swelling Skin: No Rashes, No Breakdown, No Significant Lesion Neuro: Normal Gait, Normal Speech, Strength at 5/5 X4 Ext, Normal Tone, Sensation Intact Psych/Mental Status: Mental Status NL, Mood NL Results Lab Laboratory Tests 08/25/19 05:44 A/P-Cardiology Admission Diagnosis Paroxysmal atrial tachycardia Aortic valve stenosis Chest pain Abnormal EKG Assessment/Plan Paroxysmal atrial tachycardia, self-limiting, asymptomatic, has been on telemetry and in sinus rhythm, no further arrhythmia was noted Abnormal EKG, history of occasional episode of chest pain, nonspecific etiology, echocardiogram showed mild left ventricular hypertrophy with normal systolic function, mild to moderate aortic valve stenosis, started on beta blockers. Continue to monitor Recurrent nosebleed, has surgery done today, feeling better. Hypertension, monitor blood pressure Clinical Quality Measures DVT/VTE Risk/Contraindication: Risk Factor Score Per Nursin RFS Level Per Nursing on Admit: 3=High TOSHIA ZAPATA MD Aug 25, 2019 16:24
[2019-08-25] MEDS: MELATONIN 3 MG TABLET PO PRN (23:48)
[2019-08-25] MEDS: HYDROcodone/APAP 5 MG/325 MG (LORTAB) TAB PO PRN (23:48)
[2019-08-26 00:02] VITALS: BP 129/62
[2019-08-26 04:15] VITALS: BP 121/58
[2019-08-26] MEDS: DICYCLOMINE 10 MG (BENTYL) CAP PO SCH ×2 (05:15→12:10)
[2019-08-26] MEDS: ceFAZolin INJECTION 1,000 MG in WATER (STERILE) FOR INJECTION 10 ML IV SCH (05:15)
--- NOTE | 2019-08-26 06:40 | NUR ---
DR CABALLERO DID ROUNDS THIS MORNING AND REPORTED THAT PT IS OK TO BE DISCHARGED TODAY. HE LEFT SCRIPTS FOR HYDROCODONE AND ANTIBIOTIC. STAFF HERE NEEDS TO MAKE FOLLOW UP APPOINTMENT FOR PT PRIOR TO DISCHARGE, HIS OFFICE OPENS AT 8 AM.
[2019-08-26 08:00] VITALS: BP 142/65
[2019-08-26] MEDS: RT-ALBUTEROL SULF 2.5 MG/3 ML PRE-MIX VIAL INH SCH (09:46)
--- NOTE | 2019-08-26 10:31 | Discharge Summary ---
GENARO BELTRAN,MED STUDENT 08/26/19 1031: Diagnosis/Chief Complaint Date of Admission Aug 24, 2019 at 14:32 Date of Discharge Discharge Date: Aug 26, 2019 Admission Diagnosis Epistaxis Primary Care Discharge Diagnosis (1) Atrial tachycardia Status: Acute (2) Accelerated hypertension Status: Acute (3) Epistaxis Status: Acute (4) Paroxysmal atrial fibrillation with RVR Status: Acute (5) Left-sided epistaxis Status: Acute Discharge Summary Procedures/Consulations ENT Cardiology Discharge Physical Exam Allergies: Coded Allergies: No Known Drug Allergies (Unverified , 04/04/14) Vitals & I&Os Vital Signs Date Time Temp Pulse Resp B/P (MAP) Pulse Ox O2 Delivery O2 Flow Rate FiO2 08/26/19 09:46 90 OxyMask 4.00 08/26/19 08:00 36.6 56 16 142/65 (90) 08/25/19 16:00 36 General Appearance: No Apparent Distress, WD/WN HEENT: Pharynx Normal, Moist Mucous Membranes Respiratory: Chest Non Tender, Lungs Clear, Normal Breath Sounds, No Accessory Muscle Use, No Respiratory Distress Cardiovascular: Regular Rate, Rhythm, No Edema, No Murmur Gastrointestinal: Non Tender, Soft Extremity: No Calf Tenderness, No Pedal Edema Skin: Normal Color, Warm/Dry Neurologic/Psychiatric: Alert, Normal Mood/Affect Hospital Course Was the Problem List Reviewed?: Yes Patient is a 79 y/o male who initially presented to the ED in [place] on 08/24/19 with right sided epistaxis. He was transferred to the [place] ED for ENT consult and just prior to transfer he had an abnormal EKG suspicious for atrial fibrillation with RVR. Cardiology was consulted and Dr. Rubio reviewed the EKG. He did not agree with the diagnosis of atrial fibrillation and thought it was more likely supraventricular tachycardia. The patient remained asymptomatic from a cardiac standpoint. He already takes verapamil and lisinopril for hypertension, and during admission he was started on metoprolol 25 mg daily. Cardiac troponins remained within normal limits throughout hospital stay. He has not had any further cardiac abnormalities noted on telemetry. ENT proceeded with endoscopic repair of his posterior epistaxis and he has had no further bleeding since. Patient is feeling well today and requesting to go home. Dr. Rubio will see him prior to discharge to determine preferred cardiology follow up. He should follow up with Dr. Pappas as requested. He will see his primary care provider in 1-2 weeks. Labs (last 24 hrs) Microbiology 08/24/19 MRSA Screen - Final, Complete MRSA not isolated Patient resulted labs reviewed. Discharge Home Medications: Active Scripts Active Reported Albuterol Sulfate 2.5 Mg/3 Ml Vial.neb 2.5 Mg NEB Q4H PRN Aspirin EC (Aspirin) 325 Mg Tablet. 325 Mg PO DAILY Verapamil HCl 80 Mg Tablet 80 Mg PO DAILY Lisinopril 20 Mg Tablet 20 Mg PO DAILY Dicyclomine HCl 20 Mg Tablet 20 Mg PO BID Instructions to patient/family Please see electronic discharge instructions given to patient. Clinical Quality Measures DVT/VTE Risk/Contraindication: Risk Factor Score Per Nursin RFS Level Per Nursing on Admit: 3=High JAXON PINON MD 08/26/19 1302: Discharge Summary Discharge Physical Exam Allergies: Coded Allergies: No Known Drug Allergies (Unverified , 04/04/14) Discussion & Recommendations Discharge Planning: >30 minutes discharge planning Supervisory-Addendum Brief Verification & Attestation Participated in pt care: history, MDM, physical Personally performed: exam, history, MDM, supervision of care Care discussed with: Medical Student Procedures: n/a Results interpretation: Verified all documentation Verification and Attestation of Medical Student E/M Service A medical student performed and documented this service in my presence. I reviewed and verified all information documented by the medical student and made modifications to such information, when appropriate. I personally performed the physical exam and medical decision making. Jaxon Pinon, Aug 26, 2019,13:02 GENARO BELTRAN,MED STUDENT Aug 26, 2019 10:31 JAXON PINON MD Aug 26, 2019 13:02
[2019-08-26] MEDS ORDERED: MTP25TSR PO (10:51)
--- NOTE | 2019-08-26 10:53 | Discharge Inst-Simple/Standard ---
Discharge Inst-Standard Discharge Medications New, Converted or Re-Newed RX: Transmitted to Pharmacy Patient Instructions/Follow Up Plan of Care/Instructions/FU: Please continue to take your medications as written. Please follow up with Dr Pappas as scheduled and with Dr Rubio as recommended. Activity as Tolerated: Yes Discharge Diet: No Restrictions Return to The Hospital For: Recurrent nosebleed, chest pain, heart racing, if you feel you are getting worse. Planned Outpatient Orders/Ref. Pneu Vac Indicated: Yes JAXON BEAVERS MD Aug 26, 2019 10:52
[2019-08-26] MEDS: D5 1/2 NS W/KCL 20 MEQ/L 1,000 ML IV SCH (12:44)
--- NOTE | 2019-08-26 13:00 | NUR ---
patient has been on 4L O2. patient has not been compliant with O2 but has been stating at 93% room air. patient stated he does not where O2 at home
--- NOTE | 2019-08-26 13:28 | Cardiology Progress Note ---
Subjective Date Seen by Provider: Aug 26, 2019 Time Seen by Provider: 13:26 Subjective/Events-last exam Patient is sitting in bed, eating lunch, no new complaint Review of Systems General: No Chills, No Night Sweats, No Fatigue, No Malaise, No Appetite, No Other HEENT: No Head Aches, No Visual Changes, No Eye Pain, No Ear Pain, No Dysphasia, No Sinus Congestion, No Post Nasal Drip, No Sore Throat, No Other Pulmonary: No Dyspnea, No Cough, No Pleuritic Chest Pain, No Other Cardiovascular: No: Chest Pain, Palpitations, Orthopnea, Paroxysmal Noc. Dyspnea, Edema, Lt Headedness, Other Objective-Cardiology Exam Last Set of Vital Signs Vital Signs 08/25/19 08/26/19 08/26/19 08/26/19 16:00 08:00 09:46 13:00 Temp 36.6 Pulse 60 Resp 16 B/P (MAP) 142/65 (90) Pulse Ox 90 O2 Delivery OxyMask O2 Flow Rate 4.00 FiO2 36 Capillary Refill : Less Than 3 SecondsLess Than 3 Seconds I&O Intake and Output 08/26/19 00:00 Intake Total 1412 ml Output Total 2655 ml Balance -1243 ml Intake Oral 1412 ml Output Urine Total 2655 ml General: Alert, Oriented X3, Cooperative HEENT: Atraumatic, PERRLA Neck: Supple, No JVD, No Thyromegaly Lungs: Clear to Auscultation, Normal Air Movement Heart: Regular Rate, Normal S1, Normal S2, No Murmurs Abdomen: Normal Bowel Sounds, Soft, No Tenderness, No Hepatosplenomegaly, No Masses Extremities: No Clubbing, No Cyanosis, No Edema, Normal Pulses, No Tenderness/Swelling Skin: No Rashes, No Breakdown, No Significant Lesion Neuro: Normal Gait, Normal Speech, Strength at 5/5 X4 Ext, Normal Tone, Sensation Intact Psych/Mental Status: Mental Status NL, Mood NL A/P-Cardiology Admission Diagnosis Paroxysmal atrial tachycardia Aortic valve stenosis Chest pain Abnormal EKG Assessment/Plan Paroxysmal atrial tachycardia, self-limiting, asymptomatic, has been on telem etry and in sinus rhythm, no further arrhythmia was noted Abnormal EKG, history of occasional episode of chest pain, nonspecific etiology, echocardiogram showed mild left ventricular hypertrophy with normal systolic function, mild to moderate aortic valve stenosis, started on beta blockers. Continue to monitor Recurrent nosebleed, has surgery done yesterday, recovered well. No new complaint Hypertension, tolerating Toprol, good blood pressure control. Continue to follow-up as an outpatient Clinical Quality Measures DVT/VTE Risk/Contraindication: Risk Factor Score Per Nursin RFS Level Per Nursing on Admit: 3=High TOSHIA ZAPATA MD Aug 26, 2019 13:28
[2019-08-26] MEDS: HYDROcodone/APAP 5 MG/325 MG (LORTAB) TAB PO PRN (13:52)
[2019-08-26 14:17] VITALS: BP 142/65
--- NOTE | 2019-08-27 05:39 | CONSULTATION REPORT ---
DATE OF SERVICE: ENT PROGRESS NOTE ROOM: 405. REASON FOR VISIT: Followup right epistaxis. HISTORY OF PRESENT ILLNESS: The patient has had a good night. He has had no bleeding from the nose. He is able to breathe through the nose. According to the nurse, the heart workup has been negative. PHYSICAL EXAM: NOSE: Externally, the nose is normal. There is no new or old blood seen either anterior or posterior within the nose. IMPRESSION: Status post repair of the right posterior epistaxis. RECOMMENDATIONS: From my standpoint, he may be discharged after the breakfast. I write a script for antibiotics for 10 days as well as a script for 20 hydrocodone 1 every 4 hours as needed for pain. Nosebleed instructions were reviewed and stressed. He will return to see us in 2 weeks in the office for a followup. If he has any marked bleeding, I have asked him to call and we will see him acutely. Job ID: [id number] DocumentID: [id number] Dictated Date: 08/26/2019 06:51:50 Fabric Cutter Date: 08/26/2019 08:07:23 Dictated By: MATTHIAS CABALLERO MD
== END 2019-08-26 14:17 | disposition home or self-care (01) ==
LOC: EDUNIT# 13:09 → ER 13:10 → 4TH 14:32
PROVIDERS: ADMIT Family Medicine; ATTEND Family Medicine
DX: R04.0 Epistaxis (principal); I10 Essential (primary) hypertension; I48.0 Paroxysmal atrial fibrillation; F17.210 Nicotine dependence, cigarettes, uncomplicated; I07.1 Rheumatic tricuspid insufficiency; J44.9 Chronic obstructive pulmonary disease, unspecified; M10.9 Gout, unspecified; G62.9 Polyneuropathy, unspecified; Z79.82 Long term (current) use of aspirin; Z79.891 Long term (current) use of opiate analgesic
CPT/HCPCS: 36415; 71045; 80053; 80061; 83735; 83874; 84443; 84484; 85025; 85027; 85610; 85730; 87081; 93005; 93041; 93306; 94640; 94664; 94760

== ENCOUNTER 2019-09-16 19:51 | Observation (INO) | payer MEDICARE, OTHER ==
[~2019-09-16] VITALS: Ht 178 cm; Wt 94.0 kg
[~2019-09-16 19:51] MED LIST changes: +ALBU2.5V4 NEB; +ASPI325T32 PO; +DICY20TA10 PO; +LISI-552 PO; +MTP25TSR PO; +VERA80TA4 PO
[2019-09-16] MEDS ORDERED: OXYMETAZOLINE (AFRIN) 0.05% NA 30 ML BTL ONE (20:01)
[2019-09-16] MEDS ORDERED: OXYMETAZOLINE (AFRIN) 0.05% NA 30 ML BTL STA (20:07)
[2019-09-16] MEDS ORDERED: ALBU90AE2 (20:11)
--- NOTE | 2019-09-16 20:22 | ED EENT ---
History of Present Illness General Chief Complaint: Nasal Problems Stated Complaint: NOSE BLEEDING Source: patient, family (son) Exam Limitations: no limitations History of Present Illness Date Seen by Provider: Sep 16, 2019 Time Seen by Provider: 20:00 Initial Comments Patient arrives the ER by private conveyance with his son and chief complaint that just before arrival he started having a nosebleed after a coughing session. He says he's had these before; 3 weeks ago he had to come to the ER. At that time he admitted him and Dr. Pappas did some cauterization. A year ago he had some surgery done on his opposite nostril on the right side related to nosebleeds. This time he says it's his right nostril but 3 weeks ago was his left nostril. He takes some kind of a nasal spray twice a day but is not sure the name of it. Patient is not on blood thinners. He does take aspirin daily. Allergies and Home Medications Allergies Coded Allergies: No Known Drug Allergies (Unverified , 04/04/14) Home Medications Albuterol Sulfate 2.5 Mg/3 Ml Vial.neb, 2.5 MG NEB Q4H PRN for SHORTNESS OF BREATH, (Reported) Aspirin 325 Mg Tablet.dr, 325 MG PO DAILY, (Reported) Lisinopril 20 Mg Tablet, 20 MG PO DAILY, (Reported) Metoprolol Succinate 25 Mg Tab.er.24h, 25 MG PO DAILY Prescribed by: JAXON BEAVERS on 08/26/19 1051 Patient Home Medication List Home Medication List Reviewed: Yes Review of Systems Review of Systems Constitutional: No chills, No diaphoresis Eyes: Denies Blindness, Denies Blurred Vision Ears: Denies Dizziness, Denies Pain Nose: see HPI, clots, congestion, epistaxis Mouth: denies clots, denies pain, denies swelling Throat: denies swelling, denies discharge Hematologic/Lymphatic: Denies Anemia, Denies Blood Clots All Other Systems Reviewed Negative Unless Noted: Yes Past Pajamqp-Setudz-Tjpnoi Hx Patient Social History Alcohol Use: Denies Use Recreational Drug Use: No Smoking Status: Current Everyday Smoker Type Used: Cigarettes 2nd Hand Smoke Exposure: Yes Recent Foreign Travel: No Contact w/Someone Who Travel: No Recent Hopitalizations: No Physical Abuse: No Sexual Abuse: No Mistreated: No Fear: No Immunizations Up To Date Tetanus Booster (TDap): Unknown PED Vaccines UTD: Yes Seasonal Allergies Seasonal Allergies: No Past Medical History Surgeries: Yes (L shoulder, nasal cautery) Orthopedic Respiratory: No Currently Using CPAP: No Currently Using BIPAP: No Cardiac: Yes (atrial tachycardia) Hypertension Neurological: No Genitourinary: No Gastrointestinal: No Musculoskeletal: No Endocrine: No HEENT: No Cancer: No Psychosocial: No Integumentary: No Blood Disorders: No Family Medical History No Pertinent Family Hx Physical Exam Vital Signs Vital Signs - First Documented 09/16/19 19:57 Temp 36.3 Pulse 75 Resp 16 B/P (MAP) 164/91 (115) Pulse Ox 95 O2 Delivery Room Air Height, Weight, BMI Height: 5'10" Weight: 210lbs. oz. [id number]; 28.76 BMI Method:Stated General Appearance: WD/WN, no apparent distress Eyes: bilateral eye normal inspection, bilateral eye PERRL, bilateral eye EOMI Ears: bilateral ear auricle normal, bilateral ear canal normal, bilateral ear TM normal Nose: active bleeding; No discharge Mouth/Throat: normal mouth inspection; No dental tenderness Cardiovascular: normal peripheral pulses, regular rate, rhythm Respiratory: no respiratory distress, no accessory muscle use Neurologic/Psychiatric: alert, normal mood/affect, oriented x 3 Skin: normal color, warm/dry Progress/Results/Core Measures Results/Orders Lab Results Laboratory Tests Test 09/16/19 21:30 Range/Units White Blood Count 6.8 4.3-11.0 10^3/uL Red Blood Count 5.46 4.35-5.85 10^6/uL Hemoglobin 15.4 13.3-17.7 G/DL Hematocrit 47 40-54 % Mean Corpuscular Volume 86 80-99 FL Mean Corpuscular Hemoglobin 28 25-34 PG Mean Corpuscular Hemoglobin Concent 33 32-36 G/DL Red Cell Distribution Width 14.5 10.0-14.5 % Platelet Count 228 130-400 10^3/uL Mean Platelet Volume 9.0 7.4-10.4 FL Neutrophils (%) (Auto) 68 42-75 % Lymphocytes (%) (Auto) 15 12-44 % Monocytes (%) (Auto) 11 0-12 % Eosinophils (%) (Auto) 6 0-10 % Basophils (%) (Auto) 0 0-10 % Neutrophils # (Auto) 4.7 1.8-7.8 X 10^3 Lymphocytes # (Auto) 1.0 1.0-4.0 X 10^3 Monocytes # (Auto) 0.7 0.0-1.0 X 10^3 Eosinophils # (Auto) 0.4 H 0.0-0.3 10^3/uL Basophils # (Auto) 0.0 0.0-0.1 10^3/uL My Orders Orders - ASHLEY MCCULLOUGH Oxymetazoline 0.05% Nasal Crivitz (Afrin 0. (09/16/19 20:01) Oxymetazoline 0.05% Nasal Crivitz (Afrin 0. (09/16/19 20:07) Ondansetron Oral Dissolve Tab (Zofran (09/16/19 20:30) Tranexamic Acid Injection (Cyklokapron I (09/16/19 20:45) Cbc With Automated Diff (09/16/19 21:25) Comprehensive Metabolic Panel (09/16/19 21:25) Ed Iv/Invasive Line Start (09/16/19 21:25) Ns Iv 500 Ml (Sodium Chloride 0.9%) (09/16/19 21:25) Medications Given in ED Current Medications Medications Dose Ordered Sig/Rosy Route Start Time Stop Time Status Last Admin Dose Admin Ondansetron HCl 4 mg ONCE ONCE PO 09/16/19 20:30 09/16/19 20:31 DC 09/16/19 20:30 4 MG Oxymetazoline HCl 30 ml STK-MED ONCE .ROUTE 09/16/19 20:01 09/16/19 20:07 DC 09/16/19 20:08 30 ML Sodium Chloride 500 ml @ 0 mls/hr Q0M ONCE IV 09/16/19 21:25 09/16/19 21:26 DC 09/16/19 21:32 0 MLS/HR Tranexamic Acid 1,000 mg STK-MED ONCE IV 09/16/19 20:45 09/16/19 20:51 DC 09/16/19 20:50 1,000 MG Vital Signs/I&O 09/16/19 19:57 Temp 36.3 Pulse 75 Resp 16 B/P (MAP) 164/91 (115) Pulse Ox 95 O2 Delivery Room Air Progress Progress Note #1: Time: 20:21 Progress Note Previous notes referenced him requiring cauterization under anesthesia. He had to be packed by the ER doctor and Pamela but sneezed and bled around it. We'll give him some Zofran for his mild nausea. Gave him several puffs of Afrin up his right nostril and hold pressure and observe. Progress Note #2: Time: 20:59 Progress Note The patient continues to have epistaxis despite applications of oxymetazoline alone to both nostrils twice. We put a gram of TXA on the rhino rocket and apply the 7.5 cm rocket to the right nasal cavity. Consults : Consulting Physician: MATTHIAS PAPPAS MD Consults Notes If packing is unable to control his bleeding and then he will come in and take the patient to the OR. Departure Communication (Admissions) Time/Spoke to Admitting Phy: 21:45 Discussed the case with Dr. Pappas and he says he'll be about 30 minutes plan to take in the OR for endoscopic repair of posterior right epistaxis. We called housekeeper/laundry assistant to calling the on-call surgery team. Impression Primary Impression: Acute posterior epistaxis Disposition: ADMITTED INPATIENT Condition: Stable Admissions Decision to Admit Reason: Admit from ER (General) Decision to Admit/Date: Sep 16, 2019 Time/Decision to Admit Time: 21:45 Departure-Patient Inst. Referrals: GEREMIAS OLIVERA DO (PCP/Family) Primary Care Physician ASHLEY MCCULLOUGH Sep 16, 2019 20:21
[2019-09-16] MEDS ORDERED: ONDANSETRON 4 MG (ZOFRAN) ORAL DISSOLVE TAB PO ONE (20:30)
[2019-09-16] MEDS ORDERED: TRANEXAMIC ACID 100 MG/ML 10 ML INJECTION IV ONE (20:45)
[2019-09-16] MEDS ORDERED: NS IV 500 ML 500 ML IV ONE (21:25)
[2019-09-16 21:41] LABS: BASOPHILS % (AUTO) 0 % (0-10); EOSINOPHILS # (AUTO) 0.4 10^3/uL (0.0-0.3); EOSINOPHILS % (AUTO) 6 % (0-10); HEMATOCRIT 47 % (40-54); HEMOGLOBIN 15.4 G/DL (13.3-17.7); LYMPHOCYTES % (AUTO) 15 % (12-44); MEAN CORPUSCULAR HEMOGLOBIN 28 PG (25-34); MEAN CORPUSCULAR HGB CONC 33 G/DL (32-36); MEAN CORPUSCULAR VOLUME 86 FL (80-99); MONOCYTES # (AUTO) 0.7 X 10^3 (0.0-1.0); MONOCYTES % (AUTO) 11 % (0-12); NEUTROPHILS # (AUTO) 4.7 X 10^3 (1.8-7.8); NEUTROPHILS % (AUTO) 68 % (42-75); PLATELET COUNT 228 10^3/uL (130-400); RED CELL DISTRIBUTION WIDTH 14.5 % (10.0-14.5); WHITE BLOOD COUNT 6.8 10^3/uL (4.3-11.0)
--- NOTE | 2019-09-16 22:00 | NUR ---
consent for surgery obtained. pt in gown, no questions at this time.
[2019-09-16 22:01] LABS: ALANINE AMINOTRANSFERASE 11 U/L (0-55); ALBUMIN 3.9 GM/DL (3.2-4.5); ALKALINE PHOSPHATASE 63 U/L (40-136); BILIRUBIN,TOTAL 0.4 MG/DL (0.1-1.0); BUN/CREATININE RATIO 18; CALCIUM 9.1 MG/DL (8.5-10.1); CARBON DIOXIDE 22 MMOL/L (21-32); CHLORIDE 105 MMOL/L (98-107); CREATININE SERUM 0.89 MG/DL (0.60-1.30); GFR ESTIMATED > 60; GLUCOSE 111 MG/DL (70-105); POTASSIUM 4.3 MMOL/L (3.6-5.0); SODIUM 140 MMOL/L (135-145); TOTAL PROTEIN 7.5 GM/DL (6.4-8.2)
[2019-09-16] MEDS ORDERED: MUPIROCIN 2% OINT 22 GM (BACTROBAN) TUBE ONE (22:03)
[2019-09-16] MEDS ORDERED: SEVOFLURANE (ULTANE) 15 ML INHAL SOLN ONE ×4 (22:05→23:39)
[2019-09-16] MEDS ORDERED: LIDOCAINE PF 2% 5 ML (XYLOCAINE) VIAL ONE (22:05)
[2019-09-16] MEDS ORDERED: proPOfol 200 MG/20 ML (DIPRIVAN) VIAL IV ONE (22:05)
[2019-09-16] MEDS ORDERED: fentaNYL INJECTION 100 MCG/2 ML AMP ONE ×2 (22:06→22:27)
[2019-09-16] MEDS ORDERED: COCAINE HCL 4% 2 ML SYR ONE (22:11)
[2019-09-16] MEDS ORDERED: BSS 15 ML ONE (22:12)
[2019-09-16] MEDS ORDERED: LIDOCAINE/EPI 1%-1:100,000 (XYLOCAINE) 20ML ONE (22:12)
[2019-09-16] MEDS ORDERED: PHENYLEPHRINE 0.5% NASAL SPR (NEO-SYNEPHRINE) REG ONE ×2 (22:12→22:36)
--- NOTE | 2019-09-16 22:20 | NUR ---
surgery staff here reprot given.
[2019-09-16] MEDS ORDERED: ONDANSETRON 4 MG/2 ML (SDV) Z0FRAN ONE ×2 (22:27→22:49)
[2019-09-16] MEDS ORDERED: morphine INJ 10 MG/ML 1ML (SYR OR VIAL) ONE (22:27)
--- NOTE | 2019-09-16 22:30 | Progress Note-Pre Operative ---
Pre-Operative Progress Note H&P Reviewed The H&P was reviewed, patient examined and no changes noted. Date Seen by Provider: Sep 16, 2019 Time Seen by Provider: 22:30 Date H&P Reviewed: Sep 16, 2019 Time H&P Reviewed: 22:30 Pre-Operative Diagnosis: Right Posterior Epiestaxis MATTHIAS CABALLERO MD Sep 16, 2019 22:30
--- NOTE | 2019-09-16 22:35 | Progress Note ---
Standard Progress Note Progress Notes/Assess & Plan Date Seen by a Provider: Sep 16, 2019 Time Seen by a Provider: 22:30 Progress/Assessment & Plan ENT-Mian- CC: Right Posterior Epistaxis-hiSTSORY AND pHYSICAL HPI: Patient was at [employer] getting ready to eat when he had the onset of bleeding posterior from the right side of the nose. Presented to the ER where the nose wsa packed he ocntinued to bleed posteriorly o nthe right side history of left posterior epistaxis one month ago whih required control in the OR. NO further bleeding on the left side Is on one aspirin/day Pmhx-no new health issues since we last saw him Exam: Nose-bleeding form right side of nose iwth paking in place OP-bright red blood going down the back of nose and pharynx on right IMP 1. Right Posterior Epistaxis Rec: 1. Will atke to the OR for EUA and repair of right posterior epistaxis. Risks and benefits discussed- will proceed to the OR when crew is available. Az lstay overnight/ plan on discharge on wednesday if things go well and he has no further bleeding Final Diagnosis Right Posterior Epistaxis MATTHIAS CABALLERO MD Sep 16, 2019 22:35
[2019-09-16] MEDS ORDERED: DEXAMETHASONE 10 MG/ML (DECADRON) 1 ML VIAL ONE (22:49)
[2019-09-16] MEDS ORDERED: SUCCINYLCHOLINE INJ 100 MG/5 ML SYR ONE (22:49)
[2019-09-16] MEDS ORDERED: LACTATED RINGERS 1,000 ML IV PRN (23:00)
[2019-09-16] MEDS ORDERED: ROCURONIUM 10 MG/ML 5 ML SYRINGE IV ONE (23:05)
[2019-09-16] MEDS ORDERED: morphine INJ 10 MG/ML 1ML (SYR OR VIAL) IVP ONE (23:15)
[2019-09-16] MEDS ORDERED: ONDANSETRON 4 MG/2 ML (SDV) Z0FRAN IVP PRN (23:15)
[2019-09-16] MEDS ORDERED: fentaNYL INJECTION 100 MCG/2 ML AMP IVP ONE (23:15)
[2019-09-16] MEDS ORDERED: ceFAZolin INJECTION 1,000 MG ONE (23:21)
[2019-09-16] MEDS ORDERED: GLYCOPYRROLATE 0.2 MG/ML (ROBINUL) 2 ML VIAL ONE (23:25)
[2019-09-16] MEDS ORDERED: NEOSTIGMINE 3 MG/3 ML VIAL ONE (23:25)
--- NOTE | 2019-09-16 23:31 | Progress Note-Post Operative ---
Post-Operative Progess Note Surgeon (s)/Jacquard Loom Fixer (s) Surgeon MATTHIAS CABALLERO MD Jacquard Loom Fixer n/a Pre-Operative Diagnosis Right Posterior Epiestaxis Post-Operative Diagnosis same Post-Op Procedure Note Date of Procedure: Sep 16, 2019 Name of Procedure Performed: Endoscopic Repair of Right Posterior Epistaxis Description & Findings Description and Findings: n/a Anesthesia Type get Estimated Blood Loss 50cc at time of surgery Packing surgicel packing right side of nose. Specimen(s) collected/removed none MATTHIAS CABALLERO MD Sep 16, 2019 23:31
[2019-09-16] MEDS ORDERED: D5 1/2 NS W/KCL 20 MEQ/L 1,000 ML IV SCH (23:32)
[2019-09-16] MEDS ORDERED: PHENYLEPHRINE 0.5% NASAL SPR (NEO-SYNEPHRINE) REG PRN (23:45)
[2019-09-16] MEDS ORDERED: ACETAMINOPHEN 500 MG TAB (TYLENOL) PO PRN (23:45)
[2019-09-16 23:48] VITALS: BP 138/66
[2019-09-17] VITALS (10 sets, daily range): BP systolic 142–161; BP diastolic 62–85
--- NOTE | 2019-09-17 00:50 | NUR ---
COCOZULLYPAULO T admitted to room 426-1, with an admitting diagnosis of EPISTAXIS, on 09/17/19 from PACU via HOSPITAL BED, accompanied by STAFF and SON.PAULO TORO and son introduced to surroundings, call light, bed controls, phone, TV, temperature control, lights, meal times, smoking policy, visitor policy, side rail policy, bathrooms and showers. Patient Rights given to patient in the handbook. PAULO TORO and son verbalizes understanding that [facility] is not responsible for the loss or damage to any personal effects or valuables that are kept in the patients posession during their hospitalization. PAULO TORO and son verbalizes understanding of Interdisciplinary Patient Education. Patient and/or family were informed about the Rapid Response Team and its purpose.
[2019-09-17] MEDS ORDERED: fentaNYL INJECTION 100 MCG/2 ML AMP IV PRN (01:15)
[2019-09-17] MEDS ORDERED: ONDANSETRON 4 MG/2 ML (SDV) Z0FRAN IV PRN (01:15)
[2019-09-17] MEDS: HYDROcodone/APAP 5 MG/325 MG (LORTAB) TAB PO PRN ×2 (03:54→11:07)
--- NOTE | 2019-09-17 06:31 | Progress Note ---
Standard Progress Note Progress Notes/Assess & Plan Date Seen by a Provider: Sep 17, 2019 Time Seen by a Provider: 06:00 Progress/Assessment & Plan ENT-Mian- CC: Right Posterior Epistaxis-hiSTSORY AND pHYSICAL HPI: Patient was at [employer] getting ready to eat when he had the onset of bleeding posterior from the right side of the nose. Presented to the ER where the nose wsa packed he ocntinued to bleed posteriorly o nthe right side history of left posterior epistaxis one month ago whih required control in the OR. NO further bleeding on the left side Is on one aspirin/day Pmhx-no new health issues since we last saw him Exam: Nose-bleeding form right side of nose iwth paking in place OP-bright red blood going down the back of nose and pharynx on right IMP 1. Right Posterior Epistaxis Rec: 1. Will atke to the OR for EUA and repair of right posterior epistaxis. Risks and benefits discussed- will proceed to the OR when crew is available. Az lstay overnight/ plan on discharge on wednesday if things go well and he has no further bleeding ENT-09/16-599 No significant bleeding since surgery aurea diet Nose-no new or old blood seen op-dry az ldischarge post lunch as long as doing ok discharge prescriptions in chart RTC-2 weeks epistaxis discharge instructions Discharge prescriptions in chart Final Diagnosis Right Posteriro Epistaxis MATTHIAS CABALLERO MD Sep 17, 2019 06:30
[2019-09-17] MEDS ORDERED: FLU QUADRIvalent (5+ YOA) 2019-2020 (AFLURIA) 0.5 ML IM ONE (07:30)
--- NOTE | 2019-09-18 10:39 | Anesthesia-General Post-Op ---
General Patient Condition Mental Status/LOC: Same as Preop Cardiovascular: Satisfactory Nausea/Vomiting: Absent Respiratory: Satisfactory Pain: Controlled Complications: Absent Post Op Complications Complications None Follow Up Care/Instructions Patient Instructions None needed. Anesthesia/Patient Condition Patient Condition late entry 09/17/19 at 0700: Patient is doing well, no complaints, stable vital signs, no apparent adverse anesthesia problems. No complications reported per nursing. Plan to discharge to home later today. BORIS MADDEN CRNA Sep 18, 2019 10:39
--- OUTSIDE RECORDS SUMMARY | 2019-09-20 05:15 | XMS REPORT | Continuity of Care Document ---
Author Organization Unknown Address Unknown Phone Unavailable Allergies Active Description Code Type Severity Reaction Onset Reported/Identified Relationship to Patient Clinical Status Yes No Known Drug Allergies [id number] Drug Allergy Unknown N/A 04/04/2014 Medications There is no data. Problems Date Dx Coded Attending Type Code Diagnosis Diagnosed By 04/04/2014 MATTHIAS CABALLERO MD Ot 305 .1 TOBACCO USE DISORDER 04/04/2014 AMTTHIAS CABALLERO MD Ot 784 .7 EPISTAXIS 04/04/2014 MATTHIAS CABALLERO MD Ot V58.66 LONG-TERM (CURRENT) USE OF ASPIRIN 04/04/2014 MATTHIAS CABALLERO MD Ot V58.69 OTH MED,LT,CURRENT USE 08/26/2019 JAXON BEAVERS MD Ot F17.210 NICOTINE DEPENDENCE, CIGARETTES, UNCOMPL 08/26/2019 JAXON BEAVERS MD Ot G62. 9 POLYNEUROPATHY, UNSPECIFIED 08/26/2019 JAXON BEAVERS MD Ot I07. 1 RHEUMATIC TRICUSPID INSUFFICIENCY 08/26/2019 JAXON BEAVERS MD Ot I10 ESSENTIAL (PRIMARY) HYPERTENSION 08/26/2019 JAXON BEAVERS MD Ot I48. 0 PAROXYSMAL ATRIAL FIBRILLATION 08/26/2019 JAXON BEAVERS MD Ot J44. 9 CHRONIC OBSTRUCTIVE PULMONARY DISEASE, U 08/26/2019 JAXON BEAVERS MD Ot M10. 9 GOUT, UNSPECIFIED 08/26/2019 JAXON EBAVERS MD Ot R04. 0 EPISTAXIS 08/26/2019 JAXON BEAVERS MD Ot Z79. 82 CORRECTION (CURRENT) USE OF ASPIRIN 08/26/2019 JAXON BEAVERS MD Ot Z79.891 CORRECTION (CURRENT) USE OF OPIATE ANALGE 09/15/2019 JAXON BEAVERS MD Ot F17.210 NICOTINE DEPENDENCE, CIGARETTES, UNCOMPL 09/15/2019 JAXON BEAVERS MD Ot G62. 9 POLYNEUROPATHY, UNSPECIFIED 09/15/2019 JAXON BEAVERS MD, Ot I07. 1 RHEUMATIC TRICUSPID INSUFFICIENCY 09/15/2019 JAXON BEAVERS MD, Ot I10 ESSENTIAL (PRIMARY) HYPERTENSION 09/15/2019 JAXON BEAVERS MD, Ot I48. 0 PAROXYSMAL ATRIAL FIBRILLATION 09/15/2019 JAXON BEAVERS MD, Ot J44. 9 CHRONIC OBSTRUCTIVE PULMONARY DISEASE, U 09/15/2019 JAXON BEAVERS MD, Ot M10. 9 GOUT, UNSPECIFIED 09/15/2019 JAXON BEAVERS MD, Ot R04. 0 EPISTAXIS 09/15/2019 JAXON BEAVERS MD, Ot Z79. 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 Results Test Result Range Complete blood count (CBC) with automate d white blood cell (WBC) differential - 08/24/19 13:20 Blood leukocytes automated count (number/volume) 7.3 10*3/uL 4.3-11.0 Blood erythrocytes automated count (number/volume) 5.55 10*6/uL 4.35-5.85 Venous blood hemoglobin measurement (mass/volume) 15.8 g/dL 13.3-17.7 Blood hematocrit (volume fraction) 47 % 40-54 Automated erythrocyte mean corpuscular volume 85 [ foz_us] 80-99 Automated erythrocyte mean corpuscular h emoglobin (mass per erythrocyte) 29 pg 25-34 Automated erythrocyte mean corpuscular h emoglobin concentration measurement (mass/volume) 33 g/dL 32-36 Automated erythrocyte distribution width ratio 15. 5 % 10.0- 14.5 Automated blood platelet count (count/volume) 221 10*3/uL 130-400 Automated blood platelet mean volume measurement 11.2 [foz_us] 7.4-10.4 Automated blood neutrophils/100 leukocytes 67 % 42-75 Automated blood lymphocytes/100 leukocytes 19 % 12-44 Blood monocytes/100 leukocytes 11 % 0-12 Automated blood eosinophils/100 leukocytes 4 % 0-10 Automated blood basophils/100 leukocytes 0 % 0-10 Blood neutrophils automated count (number/volume) 4.9 10*3 1.8-7.8 Blood lymphocytes automated count (number/volume) 1.4 10*3 1.0-4.0 Blood monocytes automated count (number/volume) 0. 8 10*3 0.0-1.0 Automated eosinophil count 0.3 10*3/uL 0 .0-0.3 Automated blood basophil count (count/volume) 0.0 10*3/uL 0.0-0.1 PT panel in platelet poor plasma by coag ulation assay - 08/24/19 14:00 Prothrombin time (PT) in platelet poor plasma by coagu lation assay 13.5 s 12.2-14.7 INR in platelet poor plasma or blood by coagulation as say 1.0 0.8-1.4 Activated partial thromboplastin time (a PTT) in platelet poor plasma bycoagulation assay - 08/24/19 14:00 Activated partial thromboplastin time (a PTT) in platelet poor plasma bycoagulation assay 37 s 24-35 Comprehensive metabolic panel - 08/24/19 14:00 Serum or plasma sodium measurement (moles/volume) 138 mmol/L 135-145 Serum or plasma potassium measurement (moles/volume) 4.6 mmol/L 3.6-5.0 Serum or plasma chloride measurement (moles/volume) 108 mmol/L 98-107 Carbon dioxide 22 mmol/L 21-32 Serum or plasma anion gap determination (moles/volume) 8 mmol/L 5-14 Serum or plasma urea nitrogen measurement (mass/volume ) 24 mg/dL 7-18 Serum or plasma creatinine measurement (mass/volume) 0.78 mg/dL 0.60-1.30 Serum or plasma urea nitrogen/creatinine mass ratio 31 NRG Serum or plasma creatinine measurement w ith calculation of estimated glomerular filtration rate > NRG Serum or plasma glucose measurement (mass/volume) 103 mg/dL 70-105 Serum or plasma calcium measurement (mass/volume) 9.1 mg/dL 8.5-10.1 Serum or plasma total bilirubin measurement (mass/volu me) 0.5 mg/dL 0.1-1.0 Serum or plasma alkaline phosphatase ekta surement (enzymatic activity/volume) 64 U/L 40-136 Serum or plasma aspartate aminotransfera se measurement (enzymatic activity/volume) 16 U/L 5-34 Serum or plasma alanine aminotransferase measurement (enzymatic activity/volume) 17 U/L 0-55 Serum or plasma protein measurement (mass/volume) 7.4 g/dL 6.4-8.2 Serum or plasma albumin measurement (mass/volume) 3.8 g/dL 3.2-4.5 CALCIUM CORRECTED 9.3 mg/dL 8.5-10.1 Magnesium - 08/24/19 14:00 Magnesium 1.9 mg/dL 1.6-2.4 Myoglobin, serum - 08/24/19 14:00 Myoglobin, serum 59.9 ng/mL 10.0-92.0 Serum or plasma troponin i.cardiac measu rement (mass/volume) - 08/24/19 14:00 Serum or plasma troponin i.cardiac measurement (mass/v olume) < ng/mL <0.028 Serum or plasma thyrotropin measurement by detection limit <=0.05 miu/l (units/volume) - 08/24/19 14:00 Serum or plasma thyrotropin measurement by detection limit <=0.05 miu/l (units/volume) 0.43 u[iU]/mL 0.35-4.94 Methicillin resistant Staphylococcus aur eus (MRSA) screening culture - 08/24/19 18:24 Methicillin resistant Staphylococcus aureus (MRSA) scr eening culture NEG NRG Automated blood complete blood count (he mogram) panel - 08/25/19 05:44 Blood leukocytes automated count (number/volume) 7.6 10*3/uL 4.3-11.0 Blood erythrocytes automated count (number/volume) 5.09 10*6/uL 4.35-5.85 Venous blood hemoglobin measurement (mass/volume) 14.3 g/dL 13.3-17.7 Blood hematocrit (volume fraction) 44 % 40-54 Automated erythrocyte mean corpuscular volume 87 [ foz_us] 80-99 Automated erythrocyte mean corpuscular h emoglobin (mass per erythrocyte) 28 pg 25-34 Automated erythrocyte mean corpuscular h emoglobin concentration measurement (mass/volume) 32 g/dL 32-36 Automated erythrocyte distribution width ratio 14. 9 % 10.0- 14.5 Automated blood platelet count (count/volume) 176 10*3/uL 130-400 Automated blood platelet mean volume measurement 9.2 [foz_us] 7.4-10.4 Comprehensive metabolic panel - 08/25/19 05:44 Serum or plasma sodium measurement (moles/volume) 140 mmol/L 135-145 Serum or plasma potassium measurement (moles/volume) 4.1 mmol/L 3.6-5.0 Serum or plasma chloride measurement (moles/volume) 110 mmol/L 98-107 Carbon dioxide 22 mmol/L 21-32 Serum or plasma anion gap determination (moles/volume) 8 mmol/L 5-14 Serum or plasma urea nitrogen measurement (mass/volume ) 21 mg/dL 7-18 Serum or plasma creatinine measurement (mass/volume) 0.87 mg/dL 0.60-1.30 Serum or plasma urea nitrogen/creatinine mass ratio 24 NRG Serum or plasma creatinine measurement w ith calculation of estimated glomerular filtration rate > NRG Serum or plasma glucose measurement (mass/volume) 94 mg/dL 70-105 Serum or plasma calcium measurement (mass/volume) 8.6 mg/dL 8.5-10.1 Serum or plasma total bilirubin measurement (mass/volu me) 0.4 mg/dL 0.1-1.0 Serum or plasma alkaline phosphatase ekta surement (enzymatic activity/volume) 53 U/L 40-136 Serum or plasma aspartate aminotransfera se measurement (enzymatic activity/volume) 17 U/L 5-34 Serum or plasma alanine aminotransferase measurement (enzymatic activity/volume) 13 U/L 0-55 Serum or plasma protein measurement (mass/volume) 6.3 g/dL 6.4-8.2 Serum or plasma albumin measurement (mass/volume) 3.4 g/dL 3.2-4.5 CALCIUM CORRECTED 9.1 mg/dL 8.5-10.1 Serum or plasma troponin i.cardiac measu rement (mass/volume) - 08/25/19 05:44 Serum or plasma troponin i.cardiac measurement (mass/v olume) < ng/mL <0.028 Lipid 1996 panel - 08/25/19 05:44 Serum or plasma triglyceride measurement (mass/volume) 92 mg/dL <150 Serum or plasma cholesterol measurement (mass/volume) 117 mg/dL < 200 Serum or plasma cholesterol in HDL measurement (mass/v olume) 33 mg/dL 40-60 Cholesterol in LDL [mass/volume] in serum or plasma by direct assay 73 mg/dL 1-129 Serum or plasma cholesterol in VLDL measurement (mass/ volume) 18 mg/dL 5-40 Complete blood count (CBC) with automate d white blood cell (WBC) differential - 09/16/19 21:30 Blood leukocytes automated count (number/volume) 6.8 10*3/uL 4.3-11.0 Blood erythrocytes automated count (number/volume) 5.46 10*6/uL 4.35-5.85 Venous blood hemoglobin measurement (mass/volume) 15.4 g/dL 13.3-17.7 Blood hematocrit (volume fraction) 47 % 40-54 Automated erythrocyte mean corpuscular volume 86 [ foz_us] 80-99 Automated erythrocyte mean corpuscular h emoglobin (mass per erythrocyte) 28 pg 25-34 Automated erythrocyte mean corpuscular h emoglobin concentration measurement (mass/volume) 33 g/dL 32-36 Automated erythrocyte distribution width ratio 14. 5 % 10.0- 14.5 Automated blood platelet count (count/volume) 228 10*3/uL 130-400 Automated blood platelet mean volume measurement 9.0 [foz_us] 7.4-10.4 Automated blood neutrophils/100 leukocytes 68 % 42-75 Automated blood lymphocytes/100 leukocytes 15 % 12-44 Blood monocytes/100 leukocytes 11 % 0-12 Automated blood eosinophils/100 leukocytes 6 % 0-10 Automated blood basophils/100 leukocytes 0 % 0-10 Blood neutrophils automated count (number/volume) 4.7 10*3 1.8-7.8 Blood lymphocytes automated count (number/volume) 1.0 10*3 1.0-4.0 Blood monocytes automated count (number/volume) 0. 7 10*3 0.0-1.0 Automated eosinophil count 0.4 10*3/uL 0 .0-0.3 Automated blood basophil count (count/volume) 0.0 10*3/uL 0.0-0.1 Comprehensive metabolic panel - 09/16/19 21:30 Serum or plasma sodium measurement (moles/volume) 140 mmol/L 135-145 Serum or plasma potassium measurement (moles/volume) 4.3 mmol/L 3.6-5.0 Serum or plasma chloride measurement (moles/volume) 105 mmol/L 98-107 Carbon dioxide 22 mmol/L 21-32 Serum or plasma anion gap determination (moles/volume) 13 mmol/L 5-14 Serum or plasma urea nitrogen measurement (mass/volume ) 16 mg/dL 7-18 Serum or plasma creatinine measurement (mass/volume) 0.89 mg/dL 0.60-1.30 Serum or plasma urea nitrogen/creatinine mass ratio 18 NRG Serum or plasma creatinine measurement w ith calculation of estimated glomerular filtration rate > NRG Serum or plasma glucose measurement (mass/volume) 111 mg/dL 70-105 Serum or plasma calcium measurement (mass/volume) 9.1 mg/dL 8.5-10.1 Serum or plasma total bilirubin measurement (mass/volu me) 0.4 mg/dL 0.1-1.0 Serum or plasma alkaline phosphatase ekta surement (enzymatic activity/volume) 63 U/L 40-136 Serum or plasma aspartate aminotransfera se measurement (enzymatic activity/volume) 18 U/L 5-34 Serum or plasma alanine aminotransferase measurement (enzymatic activity/volume) 11 U/L 0-55 Serum or plasma protein measurement (mass/volume) 7.5 g/dL 6.4-8.2 Serum or plasma albumin measurement (mass/volume) 3.9 g/dL 3.2-4.5 CALCIUM CORRECTED 9.2 mg/dL 8.5-10.1 Encounters ACCT No. Visit Date/Time Discharge Status Pt. Type Provider Facility Loc./Unit Complaint [id number] 09/05/2019 11:31:00 09/05/2019 23:59: 59 CLS Outpatient Teddy, Efrain V [id number] 04/20/2019 13:52:28 04/20/2019 23:59: 59 CLS Outpatient BhaveshLeobardo [id number] 03/01/2019 11:13:10 03/01/2019 23:59: 59 CLS Outpatient Teddy, Efrain V [id number] 11/24/2018 15:40:09 11/24/2018 23:59: 59 CLS Outpatient Teddy, Efrain V [id number] 11/10/2018 11:12:32 11/10/2018 23:59: 59 CLS Outpatient Teddy, Efrain V [id number] 10/03/2018 15:57:48 10/03/2018 23:59: 59 CLS Outpatient Teddy, Efrain V [id number] 09/21/2018 16:22:34 09/21/2018 23:59: 59 CLS Outpatient Teddy, Efrain V [id number] 08/02/2018 15:28:08 08/02/2018 23:59: 59 CLS Outpatient Teddy, Efrain Corea [id number] 06/21/2018 14:45:22 06/21/2018 23:59: 59 CLS Outpatient Teddy, Efrain Corea [id number] 12/24/2017 12:37:50 12/24/2017 23:59: 59 CLS Outpatient Teddy, Efrain Corea [id number] 11/01/2017 12:28:27 11/01/2017 23:59: 59 CLS Outpatient Teddy, Efrain Corea [id number] 10/16/2014 13:07:02 10/16/2014 23:59: 59 CLS Outpatient Leighton Llamas [id number] 09/16/2019 21:30:00 020 14:28:00 DIS Inpatient ADA MOJICA, MATTHIAS Handy [facility] 4TH EPITAXIS [id number] 08/24/2019 14:32:00 020 14:17:00 DIS Outpatient RUTHANN MOJICA[facility]AF[facility],HTN [id number] 04/04/2014 09:49:00 014 13:35:00 DIS Outpatient ADA MOJICA, MATTHIAS Handy [facility] NOSE BLEED
== END 2019-09-17 14:28 | disposition home or self-care (01) ==
LOC: EDUNIT# 19:51 → ER 19:54 → 4TH 21:30
PROVIDERS: ADMIT Otolaryngology Otolaryngology/Facial Plastic Surgery; ATTEND Otolaryngology Otolaryngology/Facial Plastic Surgery
DX: R04.0 Epistaxis (principal); I10 Essential (primary) hypertension; I48.91 Unspecified atrial fibrillation; J44.9 Chronic obstructive pulmonary disease, unspecified; G62.9 Polyneuropathy, unspecified; M10.9 Gout, unspecified; F17.210 Nicotine dependence, cigarettes, uncomplicated; Z79.82 Long term (current) use of aspirin; Z79.899 Other long term (current) drug therapy
CPT/HCPCS: 36415; 80053; 85025